=== PATIENT | female | born 1995 | race African-American/Black ===

== ENCOUNTER 2016-11-01 21:20 | Emergency (ER) | payer OTHER ==
--- NOTE | ~2016-11-01 | CR72 ---
[facility] RADIOLOGY TEXT RESULTS PATIENT: NICHOLE FAIR LOCATION: CONSTANCE : 95 UNIT #: [id number] AGE: [address]: Jan Acevedo MD SEX: F ORDER DR: [id number] [address] [id number] [id number] E MR#: [id number] Acc #: [id number] NAME: NICHOLE FAIR : 1995 SEX: F STUDY DATE/TIME: 11/01/2016 22:12 UNIT: CONSTANCE ROOM: STUDY DESCRIPTION: CR Chest Single View Portable Attending Physician: Jan Acevedo M.D. Ordering Physician: Jan Acevedo M.D. Primary Care Physician: Primary Care Physician No MEDICAL IMAGING REPORT This report is preliminary unless electronic signature is present EXAM Portable chest. INDICATION Shortness of air today. PROCEDURE Frontal view chest. COMPARISON 09/09/2013 FINDINGS Heart size is within normal limits. No dense consolidation. No pleural fluid. No pneumothorax. IMPRESSION No acute findings. Dictated by... Juvencio Campbell M.D. THIS IS AN ELECTRONICALLY VERIFIED REPORT Juvencio Campbell M.D. at 11/06/2016 7:30 AM EED/raghu TD: 11/02/2016 01:18 JOB #: [id number] MEDICAL IMAGING REPORT [facility] RADIOLOGY TEXT RESULTS PATIENT: NICHOLE FAIR LOCATION: CONSTANCE : 95 UNIT #: [id number] AGE: [address]: Jan Acevedo MD SEX: F ORDER DR: Page 1 of 1 COPY
[~2016-11-01 21:20] MED LIST: ACETAMINOPHEN PO; ACID CONTROL20 MG PO; ADVAIR 1001 DISK W/D; ALBUTEROL MININEB NEB; ALBUTEROL17 GM; ALBUTEROL17 GM INH; ALBUTEROL17 GM NEB; BENADRYL25 M1 PO; CLARITIN10 MG; DULERA 100 MCG/13 GM INH; DULERA 200 MCG/13 GM INH; FLONASE16 GM; HUMIBID; LAXATIVE5 M1; NASONEX17 GM; PREDNISONE PO; QUAVAR; SINGULAIR; SINGULAIR PO; SYMBICORT; THEOPHYLLIN PO; THEOPHYLLINE400 MG PO; ZITHROMAX PO; ZYRTEC10 M2 PO
== END 2016-11-01 23:42 | disposition home or self-care (01) ==
LOC: CED 21:20
DX: J45.901 Unspecified asthma with (acute) exacerbation (principal); F17.200 Nicotine dependence, unspecified, uncomplicated
CPT/HCPCS: 71010; 94644; 99283